=== PATIENT | female | born 1945 | race Caucasian/White ===

== ENCOUNTER 2017-04-08 12:38 | Emergency (ER) | payer MEDICARE, OTHER ==
[2017-04-08 13:01] VITALS: BP 158/84; TEMP 97; O2SAT 99
--- NOTE | 2017-04-08 13:10 | ED.PDOC ---
History of Present Illness - General Chief Complaint: Skin/Abrasion/Tear Stated Complaint: cat scratch to left forearm this am Time Seen by Provider: 04/08/17 13:04 Source: patient Exam Limitations: no limitations Additional Information: PT WITH CAT BITE AND SCRATCH TO L FOREARM. - History of Present Illness Timing/Duration: other - THIS AM Severity: mild Improving Factors: nothing Worsening Factors: nothing Associated Symptoms: denies symptoms - WANTS TETANUS AND ABX SHOT. REFUSES TO TAKE ANY PO ABX. Allergies/Adverse Reactions: Allergies NO KNOWN ALLERGY Allergy (Unverified 04/08/17 12:57) Home Medications: Ambulatory Orders Levsin 03/06/15 Pepcid 03/06/15 Review of Systems - Review of Systems Constitutional: Denies: chills, fever Musculoskeletal: States: no symptoms reported Skin: States: other - 2 SUPERFICIAL SCRATCHES TO FOREARM AND SEVERAL SMALL PUNCTURE WOUNDS. Neurological: States: no symptoms reported Past Medical History (General) - Patient Medical History Hx Seizures: No Hx Stroke: No Hx Dementia: No Hx Asthma: No Hx of COPD: No Hx Cardiac Disorders: No Hx Congestive Heart Failure: No Hx Pacemaker: No Hx Hypertension: No Hx Diabetes: No Hx Gastroesophageal Reflux: No Hx Renal Disease: No Hx Cancer: No Hx of HIV: No Hx Hepatitis C: No Hx MRSA: No Hx Other - free text: IBS - Vaccination History Hx Tetanus, Diphtheria Vaccination: No - DOESNT REMEMEBER Hx Influenza Vaccination: No Hx Pneumococcal Vaccination: No Immunizations Up to Date: No - Social History Hx Tobacco Use: No Hx Chewing Tobacco Use: No Hx Alcohol Use: No Hx Substance Use: No Hx Substance Use Treatment: No Hx Depression: No Feels Threatened In Home Enviroment: No Feels Threatened In a Relationship: No Hx Physical Abuse: No Hx Emotional Abuse: No Hx Suspected Abuse: No - Female History Patient is a Female of Child Bearing Age (10 -59 yrs old): No Patient : No Family Medical History - Family History Mother Family History: Unknown Living Status: Unknown Physical Exam - Physical Exam General Appearance: Comfortable, No apparent distress Eye Exam: bilateral normal Ears, Nose, Throat: hearing grossly normal, normal ENT inspection Neck: non-tender, full range of motion Peripheral Pulses: radial,left: 2+ Back Exam: normal inspection Extremity: normal range of motion, non-tender, other - 2 SMALL SUPERFICIAL SCRATCHES TO FOREARM, SEVERAL SMALL PUNCTURE WOUNDS TO FOREARM. NVI Neurologic: no motor/sensory deficits, oriented x 3 Skin Exam: warm/dry, other - SEE M/S EXAM Progress - Progress Progress: 04/08/17 13:[address] CROWLEY AND PT AT LENGTH. BOTH OF US AGREE THAT WITHOUT PO COVERAGE THIS WILL BE DIFFICULT. PT UNDERSTANDS AND STILL REFUSES PO ABX. HE WILL SEE IN THE OFFICE TOMORROW FOR RECHECK. Departure - Departure Clinical Impression: Cat bite of forearm Qualifiers: Encounter type: initial encounter Laterality: left Qualified Code(s): S51.852A - Open bite of left forearm, initial encounter; W55.01XA - Bitten by cat, initial encounter Time of Disposition: 13:30 Disposition: Discharge to Home or Self Care Condition: Good Departure Forms: ED Discharge - Pt. Copy, Patient Portal Self Enrollment Instructions: DI for Cat Bite Referrals: Gregorio Crowley MD [Primary Care Provider] - 1-2 Weeks Home Medications: Ambulatory Orders Levsin 03/06/15 Pepcid 03/06/15
[2017-04-08] MEDS ORDERED: AMPICILLIN & SULBACTAM SODIUM 3 GM VIAL IM ONE (13:29)
[2017-04-08] MEDS ORDERED: LIDOCAINE 1% 10 ML VIAL INJ ONE (13:45)
[2017-04-08] MEDS ORDERED: TETANUS-DIPHTHERIA TOXOIDS (TD 1 EA SYG IM ONE (13:59)
[2017-04-08] MEDS ORDERED: TETANUS,DIPHTHERIA,PERTUSSIS 1 EA SYG IM ONE (14:10)
== END 2017-04-08 14:40 | disposition home or self-care (01) ==
LOC: ER 12:38
DX: S51.852A Open bite of left forearm, initial encounter (principal); S50.812A Abrasion of left forearm, initial encounter; Z23 Encounter for immunization; W55.01XA Bitten by cat, initial encounter; Y92.9 Unspecified place or not applicable
CPT/HCPCS: 90715; J0295

== ENCOUNTER → 2018-01-16 | Outpatient (CLI) | payer MEDICARE, OTHER ==
--- NOTE | 2018-01-17 17:15 | MAM ---
EXAM DESCRIPTION: 3D Screening BILATERAL : Digital Mammography. CLINICAL HISTORY: 72 years Female SCREENING . No complaints. Mother with breast cancer. Postmenopausal. Uses vaginal HRT cream.. COMPARISON: 2-D digital screening bilateral study 11/16/2015. No prior reports available. TECHNIQUE: Bilateral CC and MLO projection full-field images, 3-D tomosynthesis digital mammographic technique. Also bilateral synthesized CC/ MLO full-field images. CAD not utilized. FINDINGS: The breast parenchymal density pattern is: Heterogeneously dense breast tissue, which may obscure small masses. No skin thickening or nipple retraction bilateral solitary microcalcifications. More numerous left breast. Dense fibroglandular tissues anterior third of both breasts. No focal, stellate mass or density, focal asymmetry , and no suspicious microcalcifications bilaterally. Stable mammograms compared to prior study, taking into account differences in mammographic technique IMPRESSION: BI-RADS CATEGORY: 2 - BENIGN FINDINGS. FOLLOW UP: Routine digital bilateral screening, one year interval from January 2018. Written communication explaining the IMPRESSION and follow-up, will be mailed to the patient and referring health care provider. According to the [employer], yearly mammograms are recommended starting at age 40 and continuing as long as a woman is in good health. Any breast change noted on a breast self-exam should be reported promptly to the patient's healthcare provider. Breast MRI is recommended for women with an approximately 20-25% or greater lifetime risk of breast cancer, including women with a strong family history of breast or ovarian cancer and women who have been treated for Hodgkin's disease. A negative mammographic report should not delay tissue diagnosis in patients with significant clinical history or physical findings. Extremely dense breast tissue limits the sensitivity of digital mammography. Electronically signed by: Darron Baer MD 01/17/2018 5:14 PM CDT
== END ==
LOC: MAMMO 13:44
PROVIDERS: ATTEND Obstetrics & Gynecology
DX: Z12.31 Encounter for screening mammogram for malignant neoplasm of breast (principal)

== ENCOUNTER 2019-07-12 18:23 | Emergency (ER) | payer MEDICARE, OTHER ==
[2019-07-12] MEDS ORDERED: SODIUM CHLORIDE 0.9% 1000ML 1,000 ML IVS ONE (18:42)
[2019-07-12] MEDS ORDERED: SODIUM CHLORIDE 0.9% (FLUSH) 10 ML SYG IV PRN (18:42)
[2019-07-12] MEDS ORDERED: levoFLOXacin 500MG IV 500 MG in PREMIX BAG 1 BAG IVPB ONE (18:42)
[2019-07-12] MEDS ORDERED: cefTRIAXone SODIUM 1 GM in SODIUM CHL 0.9% 50ML MIN-BAG+ 50 ML IVPB ONE (18:44)
[2019-07-12] MEDS ORDERED: SODIUM CHL 0.9% 50ML MIN-BAG+ 50 ML IVPB ONE (19:05)
[2019-07-12] MEDS ORDERED: cefTRIAXone SODIUM 1 GM VIAL ONE (19:05)
[2019-07-12] MEDS ORDERED: levoFLOXacin 500MG IV 100 ML IVPB ONE (19:06)
[2019-07-12] MEDS: ACETAMINOPHEN 500 MG TAB PO ONE ×2 (19:09→19:15)
--- NOTE | 2019-07-12 19:46 | RAD ---
EXAM: AP CHEST RADIOGRAPH CLINICAL INDICATION: Shortness of breath. COMPARISON: No comparisons are available. FINDINGS: Cardiac size and pulmonary vasculature are normal. Subtle irregular nodular density in the lateral right lower measures 11 mm in diameter. Left basilar scar versus atelectasis. Lungs are otherwise clear. No pleural effusions. No pneumothorax, pneumomediastinum or free peritoneal gas. No hilar or mediastinal lymphadenopathy. No mediastinal widening. Bones appear osteopenic. Bones are intact on this single view. IMPRESSION: 1. 11 mm subtle nodular density in the mid right lung. If no remote comparison chest radiographs are available, chest CT should be performed for further evaluation. 2. Left basilar scar versus atelectasis. 3. Suspect osteopenia. Otherwise, normal for age chest radiograph. Electronically signed by: Kalen Montes De Oca MD 07/12/2019 7:45 PM [employer]
--- NOTE | 2019-07-12 19:49 | RAD ---
EXAM: 2 VIEWS left FEMUR RADIOGRAPHS CLINICAL INDICATION: Pain. COMPARISON: No remote comparison available. FINDINGS: Remotely placed left hip arthroplasty wall components appear in appropriate position without evidence of fracture, loosening or infection. Partially visualized left pelvis is intact. No left sacroiliac joint and left pubic symphysis are intact. Multiple lucent benign-appearing phleboliths in the lower pelvis bilaterally. IMPRESSION: Normal for age post remote left ION placement radiographic series. Electronically signed by: Kalen Montes De Oca MD 07/12/2019 7:47 PM [facility]
--- NOTE | 2019-07-12 19:50 | RAD ---
EXAM: 2 VIEWS LEFT HIP RADIOGRAPHS CLINICAL INDICATION: Pain post trauma. COMPARISON: No remote comparisons are currently available. FINDINGS: Remotely placed left total hip arthroplasty components are in appropriate position without evidence of loosening, infection or fracture. The partially visualized left pelvis is intact. Left sacroiliac joint and pubic symphysis are intact. IMPRESSION: 4 age remotely placed left total hip arthroplasty. . Electronically signed by: Kalen Montes De Oca MD 07/12/2019 7:49 PM [employer]
--- NOTE | 2019-07-12 19:55 | RAD ---
3 VIEWS LEFT WRIST RADIOGRAPHIC SERIES. INDICATIONS: Pain and swelling. COMPARISONS: No comparisons are available. FINDINGS: Severe osteoarthritis in the first left carpometacarpal joint without subluxation. No fractures or dislocations. 3 mm negative ulnar variance. No carpal bone osteonecrosis. No radiopaque soft tissue foreign bodies or soft tissue gas. IMPRESSION: 1. Severe osteoarthritis at the first left carpometacarpal joint. 2. No fractures or dislocations. 3. 3 mm negative ulnar variance. No evidence of carpal bone fracture or osteonecrosis. Electronically signed by: Kalen Montes De Oca MD 07/12/2019 7:53 PM [facility]
--- NOTE | 2019-07-12 20:01 | ED.PDOC ---
History of Present Illness - General Chief Complaint: Lower Extremity Injury Stated Complaint: left hip pain,cat bite to left hand Time Seen by Provider: 07/12/19 18:28 - History of Present Illness Initial Comments: c/o fall 2 days back and hit her L hip , initially had pain but now subsided but wants to get evaluated as she had L hip replacement Pt again fell down to day and hurt her L wrist , now having pain and swelling al bria with fever , no nausea or vomiting Severity: moderate Improving Factors: nothing Worsening Factors: nothing Associated Symptoms: denies symptoms Allergies/Adverse Reactions: Allergies Aspirin Allergy (Verified 07/12/19 18:46) All pain medications except Tylenol Allergy (Uncoded 07/12/19 18:46) Home Medications: Ambulatory Orders Levsin 03/06/15 Pepcid 03/06/15 levoFLOXacin [Levaquin] 500 mg PO DAILY #10 tab 07/12/19 Review of Systems - Review of Systems Constitutional: States: see HPI, fever EENTM: States: no symptoms reported Respiratory: States: no symptoms reported Cardiology: States: no symptoms reported Gastrointestinal/Abdominal: States: no symptoms reported Genitourinary: States: no symptoms reported Musculoskeletal: States: see HPI Skin: States: see HPI Neurological: States: no symptoms reported Past Medical History (General) - Patient Medical History Hx Seizures: No Hx Stroke: No Hx Dementia: No Hx Asthma: No Hx of COPD: No Hx Cardiac Disorders: No Hx Congestive Heart Failure: No Hx Pacemaker: No Hx Hypertension: No Hx Diabetes: No Hx Gastroesophageal Reflux: Yes Hx Renal Disease: No Hx Cancer: No Hx of HIV: No Hx Hepatitis C: No Hx MRSA: No - Vaccination History Hx Tetanus, Diphtheria Vaccination: Yes Hx Influenza Vaccination: Yes Hx Pneumococcal Vaccination: No - Social History Hx Tobacco Use: No Hx Chewing Tobacco Use: No Hx Alcohol Use: No Hx Substance Use: No Hx Substance Use Treatment: No Hx Depression: No Hx Physical Abuse: No Hx Emotional Abuse: No Hx Suspected Abuse: No - Female History Patient : No Family Medical History - Family History Mother Family History: Unknown Living Status: Unknown Physical Exam - Physical Exam General Appearance: Alert, Comfortable Eye Exam: bilateral normal Ears, Nose, Throat: hearing grossly normal, normal ENT inspection, normal pharynx Neck: non-tender, full range of motion, supple Respiratory: chest non-tender, lungs clear, normal breath sounds, no respiratory distress, no accessory muscle use Cardiovascular/Chest: regular rate, rhythm, no edema, no gallop Back Exam: normal inspection Extremity: normal range of motion, other - tenderness and swelling over the L wrist /hand Neurologic: bird raiser II-XII nml as tested, no motor/sensory deficits, alert, normal mood/affect, oriented x 3 Skin Exam: normal color Lymphatic: no adenopathy Progress - Results/Orders Results/Orders: 07/12/19 18:42 Sodium Chloride 0.9% (Flush) [Saline Flush Syringe] 10 ml IV PRN PRN 07/12/19 18:43 Telemetry .ONCE Pulse Ox Stat URINALYSIS Stat 07/12/19 18:44 Pulse Oximetry Assessment DAILY 07/12/19 19:04 BLOOD CULTURE Stat 07/12/19 20:45 LACTIC ACID Q2H 07/12/19 22:45 LACTIC ACID Q2H 07/13/19 00:45 LACTIC ACID Q2H 07/13/19 02:45 LACTIC ACID Q2H 07/13/19 04:45 LACTIC ACID Q2H 07/13/19 06:45 LACTIC ACID Q2H 07/13/19 08:45 LACTIC ACID Q2H 07/13/19 10:45 LACTIC ACID Q2H 07/13/19 12:45 LACTIC ACID Q2H 07/13/19 14:45 LACTIC ACID Q2H 07/13/19 16:45 LACTIC ACID Q2H Laboratory Results WBC 5.8 K/mm3 (4.8-10.8) 07/12/19 19:04 RBC 3.75 M/mm3 (4.20-5.40) L 07/12/19 19:04 Hgb 10.7 gm/dL (12.0-16.0) L 07/12/19 19:04 Hct 31.6 % (36.0-47.0) L 07/12/19 19:04 MCV 84.3 fl (81.0-99.0) 07/12/19 19:04 MCH 28.5 pg (27.0-31.0) 07/12/19 19:04 MCHC 33.8 g/dL (33.0-37.0) 07/12/19 19:04 RDW 12.5 % (11.5-14.5) 07/12/19 19:04 Plt Count 223 K/mm3 (130-400) 07/12/19 19:04 MPV 7.1 fl (7.40-10.4) L 07/12/19 19:04 Absolute Neuts (auto) 4.40 K/uL (1.8-6.8) 07/12/19 19:04 Absolute Lymphs (auto) 0.70 K/uL (1.0-3.4) L 07/12/19 19:04 Absolute Monos (auto) 0.50 K/uL (0.2-0.8) 07/12/19 19:04 Absolute Eos (auto) 0.00 K/uL (0.0-0.4) 07/12/19 19:04 Absolute Basos (auto) 0.00 K/uL (0.0-0.1) 07/12/19 19:04 Neutrophils % 77.3 % (42.0-78.0) 07/12/19 19:04 Lymphocytes % 13.0 % (20.0-50.0) L 07/12/19 19:04 Monocytes % 9.2 % (2.0-9.0) H 07/12/19 19:04 Eosinophils % 0.0 % (1.0-5.0) L 07/12/19 19:04 Basophils % 0.5 % (0.0-2.0) 07/12/19 19:04 Sodium 133 mmol/L (135-145) L 07/12/19 19:04 Potassium 3.8 mmol/L (3.6-5.0) 07/12/19 19:04 Chloride 105 mmol/L (101-111) 07/12/19 19:04 Carbon Dioxide 18 mmol/L (21-31) L 07/12/19 19:04 Anion Gap 13.8 (12-18) 07/12/19 19:04 BUN 16 mg/dL (7-18) 07/12/19 19:04 Creatinine 1.10 mg/dL (0.6-1.3) 07/12/19 19:04 BUN/Creatinine Ratio 14.5 (10-20) 07/12/19 19:04 Random Glucose 136 mg/dL (70-105) H 07/12/19 19:04 Serum Osmolality 269.6 mOsm/L (275-295) L 07/12/19 19:04 Lactic Acid 1.2 mmol/L (0.5-2.2) 07/12/19 19:04 Calcium 9.1 mg/dL (8.4-10.2) 07/12/19 19:04 Total Bilirubin 0.5 mg/dL (0.2-1.0) 07/12/19 19:04 AST 18 IU/L (10-42) 07/12/19 19:04 ALT 13 IU/L (10-60) 07/12/19 19:04 Alkaline Phosphatase 74 IU/L (42-121) 07/12/19 19:04 Serum Total Protein 6.5 gm/dL (6.4-8.2) 07/12/19 19:04 Albumin 3.7 g/dl (3.2-5.5) 07/12/19 19:04 Globulin 2.8 gm/dL (2.3-3.5) 07/12/19 19:04 Albumin/Globulin Ratio 1.3 (1.1-1.9) 07/12/19 19:04 07/12/19 18:42 Sodium Chloride 0.9% (Flush) [Saline Flush Syringe] 10 ml IV PRN PRN 07/12/19 18:43 Telemetry .ONCE Pulse Ox Stat URINALYSIS Stat 07/12/19 18:44 Pulse Oximetry Assessment DAILY 07/12/19 19:04 BLOOD CULTURE Stat 07/12/19 20:45 LACTIC ACID Q2H 07/12/19 22:45 LACTIC ACID Q2H 07/13/19 00:45 LACTIC ACID Q2H 07/13/19 02:45 LACTIC ACID Q2H 07/13/19 04:45 LACTIC ACID Q2H 07/13/19 06:45 LACTIC ACID Q2H 07/13/19 08:45 LACTIC ACID Q2H 07/13/19 10:45 LACTIC ACID Q2H 07/13/19 12:45 LACTIC ACID Q2H 07/13/19 14:45 LACTIC ACID Q2H 07/13/19 16:45 LACTIC ACID Q2H Laboratory Results WBC 5.8 K/mm3 (4.8-10.8) 07/12/19 19:04 RBC 3.75 M/mm3 (4.20-5.40) L 07/12/19 19:04 Hgb 10.7 gm/dL (12.0-16.0) L 07/12/19 19:04 Hct 31.6 % (36.0-47.0) L 07/12/19 19:04 MCV 84.3 fl (81.0-99.0) 07/12/19 19:04 MCH 28.5 pg (27.0-31.0) 07/12/19 19:04 MCHC 33.8 g/dL (33.0-37.0) 07/12/19 19:04 RDW 12.5 % (11.5-14.5) 07/12/19 19:04 Plt Count 223 K/mm3 (130-400) 07/12/19 19:04 MPV 7.1 fl (7.40-10.4) L 07/12/19 19:04 Absolute Neuts (auto) 4.40 K/uL (1.8-6.8) 07/12/19 19:04 Absolute Lymphs (auto) 0.70 K/uL (1.0-3.4) L 07/12/19 19:04 Absolute Monos (auto) 0.50 K/uL (0.2-0.8) 07/12/19 19:04 Absolute Eos (auto) 0.00 K/uL (0.0-0.4) 07/12/19 19:04 Absolute Basos (auto) 0.00 K/uL (0.0-0.1) 07/12/19 19:04 Neutrophils % 77.3 % (42.0-78.0) 07/12/19 19:04 Lymphocytes % 13.0 % (20.0-50.0) L 07/12/19 19:04 Monocytes % 9.2 % (2.0-9.0) H 07/12/19 19:04 Eosinophils % 0.0 % (1.0-5.0) L 07/12/19 19:04 Basophils % 0.5 % (0.0-2.0) 07/12/19 19:04 Sodium 133 mmol/L (135-145) L 07/12/19 19:04 Potassium 3.8 mmol/L (3.6-5.0) 07/12/19 19:04 Chloride 105 mmol/L (101-111) 07/12/19 19:04 Carbon Dioxide 18 mmol/L (21-31) L 07/12/19 19:04 Anion Gap 13.8 (12-18) 07/12/19 19:04 BUN 16 mg/dL (7-18) 07/12/19 19:04 Creatinine 1.10 mg/dL (0.6-1.3) 07/12/19 19:04 BUN/Creatinine Ratio 14.5 (10-20) 07/12/19 19:04 Random Glucose 136 mg/dL (70-105) H 07/12/19 19:04 Serum Osmolality 269.6 mOsm/L (275-295) L 07/12/19 19:04 Lactic Acid 1.2 mmol/L (0.5-2.2) 07/12/19 19:04 Calcium 9.1 mg/dL (8.4-10.2) 07/12/19 19:04 Total Bilirubin 0.5 mg/dL (0.2-1.0) 07/12/19 19:04 AST 18 IU/L (10-42) 07/12/19 19:04 ALT 13 IU/L (10-60) 07/12/19 19:04 Alkaline Phosphatase 74 IU/L (42-121) 07/12/19 19:04 Serum Total Protein 6.5 gm/dL (6.4-8.2) 07/12/19 19:04 Albumin 3.7 g/dl (3.2-5.5) 07/12/19 19:04 Globulin 2.8 gm/dL (2.3-3.5) 07/12/19 19:04 Albumin/Globulin Ratio 1.3 (1.1-1.9) 07/12/19 19:04 Departure - Departure Clinical Impression: Hand injury, Hip pain, left, Fall, Cellulitis and abscess of hand, Fever Time of Disposition: 20:05 Disposition: Discharge to Home or Self Care Condition: Good Departure Forms: ED Discharge - Pt. Copy, Patient Portal Self Enrollment Diet: resume usual diet Activity: increase activity as tolerated, walking as tolerated Referrals: Jevon Clay MD [Primary Care Provider] - 1-2 Weeks Prescriptions: levoFLOXacin [Levaquin] 500 mg PO DAILY #10 tab Home Medications: Ambulatory Orders Levsin 03/06/15 Pepcid 03/06/15 levoFLOXacin [Levaquin] 500 mg PO DAILY #10 tab 07/12/19
[2019-07-12 20:51] VITALS: BP 111/83; TEMP 100.9; O2SAT 99
== END 2019-07-12 20:52 | disposition home or self-care (01) ==
LOC: ER 18:23
DX: S61.452A Open bite of left hand, initial encounter (principal); L02.512 Cutaneous abscess of left hand; M25.552 Pain in left hip; K21.9 Gastro-esophageal reflux disease without esophagitis; W55.01XA Bitten by cat, initial encounter; Z96.642 Presence of left artificial hip joint; Y92.9 Unspecified place or not applicable; Z88.6 Allergy status to analgesic agent
CPT/HCPCS: 36415; 71045; 73110; 73502; 73551; 80053; 83605; 85025; 87040; 87502; 94760; J0696; J1956; J7030; J7050

== ENCOUNTER 2019-07-13 19:06 | Emergency (ER) | payer MEDICARE, OTHER ==
--- NOTE | 2019-07-13 20:29 | ED.PDOC ---
History of Present Illness - General Chief Complaint: Bite: Animal/Insect/Human Time Seen by Provider: 07/13/19 20:29 - History of Present Illness Initial Comments: 74 yo F who presents for continued L hand swelling. Pt sustained a cat bite two days ago and a day ago accidentally slammed her hand in a fall. Pt was evaluated here, placed on antibx with first dose in ED, after unremarkable workup. Pt has only had one dose of antibx, she is concerned because she has not seen improvement. Denies worsening of sx. Denies f/c, weakness, numbness, discharge, streaking of erythema. Complaint with antibx Levaquin, could not tolerate Augmentin. Allergies/Adverse Reactions: Allergies Aspirin Allergy (Verified 07/13/19 20:43) All pain medications except Tylenol Allergy (Uncoded 07/12/19 18:46) Home Medications: Ambulatory Orders Levsin 03/06/15 Pepcid 03/06/15 Amoxicillin & Pot Clavulanate [Augmentin Tab] 875 mg PO BID #20 tab 07/12/19 levoFLOXacin [Levaquin] 500 mg PO DAILY #10 tab 07/12/19 Review of Systems - Review of Systems Constitutional: Denies: chills, fever Musculoskeletal: States: other - L hand pain and swelling Skin: States: other - wound Neurological: Denies: numbness, weakness Past Medical History (General) - Patient Medical History Hx Seizures: No Hx Stroke: No Hx Dementia: No Hx Asthma: No Hx of COPD: No Hx Cardiac Disorders: No Hx Congestive Heart Failure: No Hx Pacemaker: No Hx Hypertension: No Hx Diabetes: No Hx Gastroesophageal Reflux: Yes Hx Renal Disease: No Hx Cancer: No Hx of HIV: No Hx Hepatitis C: No Hx MRSA: No - Vaccination History Hx Tetanus, Diphtheria Vaccination: Yes Hx Influenza Vaccination: Yes Hx Pneumococcal Vaccination: No - Social History Hx Tobacco Use: No Hx Chewing Tobacco Use: No Hx Alcohol Use: No Hx Substance Use: No Hx Substance Use Treatment: No Hx Depression: No Hx Physical Abuse: No Hx Emotional Abuse: No Hx Suspected Abuse: No - Female History Patient : No Family Medical History - Family History Mother Family History: Unknown Living Status: Unknown Physical Exam - Physical Exam General Appearance: Alert, No apparent distress Respiratory: no respiratory distress, no accessory muscle use Cardiovascular/Chest: normal peripheral pulses, regular rate, rhythm Peripheral Pulses: radial,left: 2+ Extremity: normal range of motion, other - Abrasion noted to dorsal aspect of L hand from fall, small pinpoint abrasion also noted to dorsal aspect of L hand from cat bite. Mild swelling and very light erythema to distal dorsal aspect. No discharge. FROM. 2+ pulses, cap refill <2sec, NVID. Progress - Progress Progress: Vital Signs - 24 hr 07/13/19 07/13/19 20:15 21:00 Temperature 100.2 F H 100.2 F H Pulse Rate [ 114 H 96 H monitor] Respiratory 16 16 Rate Blood Pressure 126/71 122/71 [Right Arm] O2 Sat by Pulse 97 97 Oximetry 07/13/19 20:40 I have explained and reviewed all results with the pt. Informed to continue antibx as prescribed. I explained that emergent conditions may arise and to return to the ER for new, worsening, or any persistent conditions. I've explained the importance of f/u for recheck. All questions and concerns addressed at this time. Pt understands and agrees with plan. Pt well appearing, NAD, is stable for discharge. Tessy Poon MD Emergency Medicine Physician Billing Number [id number] - Results/Orders Results/Orders: Left wrist: 3 VIEWS LEFT WRIST RADIOGRAPHIC SERIES. INDICATIONS: Pain and swelling. COMPARISONS: No comparisons are available. FINDINGS: Severe osteoarthritis in the first left carpometacarpal joint without subluxation. No fractures or dislocations. 3 mm negative ulnar variance. No carpal bone osteonecrosis. No radiopaque soft tissue foreign bodies or soft tissue gas. IMPRESSION: 1. Severe osteoarthritis at the first left carpometacarpal joint. 2. No fractures or dislocations. 3. 3 mm negative ulnar variance. No evidence of carpal bone fracture or osteonecrosis. Electronically signed by: Kalen Montes De Oca MD 07/12/2019 7:53 PM [employer] Departure - Departure Clinical Impression: Cat bite Qualifiers: Encounter type: subsequent encounter Qualified Code(s): W55.01XD - Bitten by cat, subsequent encounter Contusion of left hand Qualifiers: Encounter type: subsequent encounter Qualified Code(s): S60.222D - Contusion of left hand, subsequent encounter Abrasion of left hand Qualifiers: Encounter type: subsequent encounter Qualified Code(s): S60.512D - Abrasion of left hand, subsequent encounter Time of Disposition: 20:40 Disposition: Discharge to Home or Self Care Health Concerns: Condition: stable Departure Forms: ED Discharge - Pt. Copy, Patient Portal Self Enrollment Instructions: DI for Animal Bites Referrals: Jevon Clay MD [Primary Care Provider] - 1-2 Days Home Medications: Ambulatory Orders Levsin 03/06/15 Pepcid 03/06/15 Amoxicillin & Pot Clavulanate [Augmentin Tab] 875 mg PO BID #20 tab 07/12/19 levoFLOXacin [Levaquin] 500 mg PO DAILY #10 tab 07/12/19 Comments: Follow up: [facility] As needed, if symptoms worsen Your Primary Care Physician Make appointment, two days, for follow up
[2019-07-13 20:43] VITALS: TEMP 100.2; O2SAT 97
[2019-07-13 21:00] VITALS: BP 122/71
== END 2019-07-13 21:04 | disposition home or self-care (01) ==
LOC: ER 19:06
DX: S60.572D Other superficial bite of hand of left hand, subsequent encounter (principal); K21.9 Gastro-esophageal reflux disease without esophagitis; W55.01XD Bitten by cat, subsequent encounter; Z79.899 Other long term (current) drug therapy; Z88.6 Allergy status to analgesic agent; Y92.9 Unspecified place or not applicable

== ENCOUNTER → 2019-07-27 | Outpatient (CLI) | payer MEDICARE, OTHER | END | disposition home or self-care (01) | LOC: RAD 10:14 | PROVIDERS: ATTEND Orthopaedic Surgery | DX: M25.521 Pain in right elbow (principal) ==

== ENCOUNTER → 2019-08-17 | Outpatient (CLI) | payer MEDICARE, OTHER | LOC: GMA MATASK 14:36 | PROVIDERS: ATTEND Family Medicine | DX: R94.6 Abnormal results of thyroid function studies (principal); R39.15 Urgency of urination ==

== ENCOUNTER → 2019-08-21 | Outpatient (CLI) | payer MEDICARE, OTHER ==
--- NOTE | 2019-08-21 13:12 | CT ---
EXAM DESCRIPTION: Chest w/wo Contrast CLINICAL HISTORY: 74 years Female, SOLITARY PULMONARY NODULE TECHNIQUE: This exam was performed according to our departmental dose-optimization program, which includes automated exposure control, adjustment of the mA and/or kV according to patient size and/or use of iterative reconstruction technique. COMPARISON: 07/12/2019 FINDINGS: The thyroid gland is unremarkable. No axillary adenopathy. Normal caliber thoracic aorta. No pericardial effusion. No evidence of acute process in the visualized upper abdomen. Left hepatic lobe cysts. Moderate hiatal hernia. No mediastinal adenopathy. No pneumothorax. No pleural effusion. Biapical scarring. No focal consolidation or suspicious pulmonary nodule identified. The nodular area in question from the examination 07/12/2019 may have reflected superimposition of overlying structures. No acute or suspicious osseous abnormality. Scattered degenerative changes present. IMPRESSION: No evidence of acute process in the chest. Specifically no pulmonary nodule identified. Electronically signed by: Jesus Manuel Ren MD 08/21/2019 1:11 PM [employer]
== END ==
LOC: CT 10:00
PROVIDERS: ATTEND Family Medicine
DX: R91.1 Solitary pulmonary nodule (principal)

== ENCOUNTER 2020-01-29 20:44 | Emergency (ER) | payer MEDICARE, OTHER ==
[2020-01-29] MEDS ORDERED: fentaNYL CITRATE INJ 50 MCG/ML 2 ML AMP IV ONE (20:49)
--- NOTE | 2020-01-29 21:14 | ED.PDOC ---
History of Present Illness - General Chief Complaint: Upper Extremity Injury Stated Complaint: fall with left shoulder pain Time Seen by Provider: 01/29/20 20:49 Source: patient, RN notes reviewed, Vital Signs reviewed, EMS notes reviewed, family, EMS Exam Limitations: no limitations - History of Present Illness Initial Comments: This is a 74-year-old female presenting to the emergency department after a mechanical fall where she tripped over her cane and landed on her left shoulder. Injury occurred just prior to arrival. Denies any head trauma or loss of consciousness. No blood thinners. Patient reports significant pain with minimal range of motion of the left shoulder. No numbness/tingling. Denies any recent illness/cough/fever/travel/COVID-19 contacts. She denies any preceding symptoms like chest pain, shortness of breath or dizziness. Allergies/Adverse Reactions: Allergies Aspirin Allergy (Verified 07/13/19 20:43) Morphine Allergy (Verified 01/29/20 21:03) All pain medications except Tylenol Allergy (Uncoded 07/12/19 18:46) Home Medications: Ambulatory Orders Levsin 03/06/15 Pepcid 03/06/15 Hydrocodone-Acetaminophen [[place] 7.5-325 mg] 1 - 2 tab PO Q6H PRN #20 tab 01/29/20 Imipramine HCl 10 PO TID 01/29/20 Review of Systems - Review of Systems Constitutional: Denies: chills, fever Respiratory: Denies: orthopnea, stridor Cardiology: Denies: edema, syncope Gastrointestinal/Abdominal: Denies: abdominal pain, diarrhea, nausea, vomiting Musculoskeletal: States: joint pain. Denies: back pain, muscle pain, neck pain Skin: Denies: dryness Neurological: Denies: headache, numbness, paresthesia, tingling, weakness Endocrine: States: no symptoms reported Hematologic/Lymphatic: States: no symptoms reported Past Medical History (General) - Patient Medical History Hx Seizures: No Hx Stroke: No Hx Dementia: No Hx Asthma: No Hx of COPD: No Hx Cardiac Disorders: No Hx Congestive Heart Failure: No Hx Pacemaker: No Hx Hypertension: No Hx Thyroid Disease: Yes - Hyper Hx Diabetes: No Hx Gastroesophageal Reflux: No Hx Renal Disease: No Hx Cancer: No Hx of HIV: No Hx Hepatitis C: No Hx MRSA: No Surgical History: tonsillectomy, other - Vaccination History Hx Tetanus, Diphtheria Vaccination: Yes Hx Influenza Vaccination: Yes Hx Pneumococcal Vaccination: Yes - Social History Hx Tobacco Use: No Hx Chewing Tobacco Use: No Hx Alcohol Use: No Hx Substance Use: No Hx Substance Use Treatment: No Hx Depression: No Feels Threatened In Home Enviroment: No Feels Threatened In a Relationship: No Hx Physical Abuse: No Hx Emotional Abuse: No Hx Suspected Abuse: No - Female History Patient is a Female of Child Bearing Age (10 -59 yrs old): No Patient : No - Triage Comment ED Triage Comment: The patient was alert and oriented times 4 and complained of left shoulder pain. She denied head, neck, back and hip pain and had no other obvious signs of injury noted. Family Medical History - Family History Mother Family History: Unknown Living Status: Unknown Physical Exam - Physical Exam General Appearance: Alert, Comfortable, No apparent distress Eyes, Ears, Nose, Throat Exam: PERRL/EOMI, normal ENT inspection, TMs normal, pharynx normal Neck: non-tender, full range of motion, supple, normal inspection Cardiovascular/Respiratory: regular rate, rhythm, no M/R/G, normal peripheral pulses, no JVD, normal breath sounds, no respiratory distress Abdominal Exam: non-tender, no organomegaly Back Exam: normal inspection, no CVA tenderness, no vertebral tenderness Shoulder Exam: bone tenderness - Proximal left humerus and lateral left shoulder, limited ROM Elbow/Forearm Exam: normal inspection, normal ROM, bone tenderness Wrist Exam: no evidence of injury Hand Exam: normal inspection, non-tender, no evidence of injury, normal ROM Neuro/Tendon: normal sensation, normal motor functions, normal tendon functions, no evidence tendon injury Mental Status: alert, oriented x 3 Skin Exam: normal color, warm/dry Progress - Progress Progress: 01/29/20 21:33 Recheck. Discussed x-ray findings, plan for sling and need for follow-up with orthopedics next week. Long discussion regarding pain control. Patient states she does not do well with any opiates due to her history of IBS. She states these medications all make her constipated. I recommended daily stool softeners when taking her pain medication. Will discharge home with Columbus. 01/29/20 21:[address] Boone, left message. Notified of plan for discharge DDX: Fx, dislocation, sprain Franko Cooper DO [facility] #[id number] - Results/Orders Results/Orders: EXAM: XR Left Shoulder Complete, 2 or More Views CLINICAL HISTORY: The patient is 74 years old and is Female; fall, shoulder and elbow pain TECHNIQUE: Two or more views of the left shoulder. COMPARISON: No relevant prior studies available. FINDINGS: BONES/JOINTS: Acute fracture of the greater tuberosity is present. Humeral head is well located. No dislocation. SOFT TISSUES: Unremarkable. LUNGS: The visualized lung is clear. IMPRESSION: Greater tuberosity fracture. Electronically signed by: Sharifa Lane MD 01/29/2020 9:33 PM CDT EXAM: XR Left Elbow, 2 Views CLINICAL HISTORY: The patient is 74 years old and is Female; fall, shoulder and elbow pain TECHNIQUE: Frontal and lateral views of the left elbow. COMPARISON: No relevant prior studies available. FINDINGS: BONES/JOINTS: Degenerative change of the elbow is present with spurring of the radial head and joint space narrowing of the elbow joint. There is no joint effusion. No acute fracture. No dislocation. SOFT TISSUES: Unremarkable. IMPRESSION: No acute findings in the left elbow. Electronically signed by: Sharifa Lane MD 01/29/2020 9:33 PM I reviewed the x-rays of the shoulder and elbow personally. No elbow fracture. I disagree with the interpretation of the left shoulder x-ray, I do not feel this is a greater tuberosity fracture. Per my read it appears to be a slightly impacted surgical neck fracture. No dislocation Departure - Departure Clinical Impression: Fall Qualifiers: Encounter type: initial encounter Qualified Code(s): W19.XXXA - Unspecified fall, initial encounter Proximal humerus fracture Qualifiers: Encounter type: initial encounter Fracture type: closed Fracture morphology: other fracture Fracture alignment: nondisplaced Laterality: left Qualified Code(s): S42.295A - Other nondisplaced fracture of upper end of left humerus, initial encounter for closed fracture Disposition: Discharge to Home or Self Care Condition: Good Departure Forms: ED Discharge - Pt. Copy, Patient Portal Self Enrollment Instructions: DI for Arm Pain Diet: resume usual diet Activity: increase activity as tolerated Referrals: Jevon Clay MD [Primary Care Provider] - 1-2 Weeks Prescriptions: Hydrocodone-Acetaminophen [[place]us 7.5-325 mg] 1 - 2 tab PO Q6H PRN #20 tab PRN Reason: Moderate To Severe Pain Home Medications: Ambulatory Orders Levsin 03/06/15 Pepcid 03/06/15 Hydrocodone-Acetaminophen [[place] 7.5-325 mg] 1 - 2 tab PO Q6H PRN #20 tab 01/29/20 Imipramine HCl 10 PO TID 01/29/20 Additional Instructions: Wear sling as much as possible. Take your arm out of the sling at least 2-3 times a day and perform gentle range of motion exercises to prevent frozen shoulder. Your pain medication will make you constipated. Please take your normal stool softeners anytime you take your pain medication to prevent constipation. Return to the emergency room for worsening pain, discoloration in your hands/fingers, weakness/numbness/tingling, or any other concerns
--- NOTE | 2020-01-29 21:34 | RAD ---
EXAM: XR Left Elbow, 2 Views CLINICAL HISTORY: The patient is 74 years old and is Female; fall, shoulder and elbow pain TECHNIQUE: Frontal and lateral views of the left elbow. COMPARISON: No relevant prior studies available. FINDINGS: BONES/JOINTS: Degenerative change of the elbow is present with spurring of the radial head and joint space narrowing of the elbow joint. There is no joint effusion. No acute fracture. No dislocation. SOFT TISSUES: Unremarkable. IMPRESSION: No acute findings in the left elbow. Electronically signed by: Sharifa Lane MD 01/29/2020 9:33 PM CDT
--- NOTE | 2020-01-29 21:35 | RAD ---
EXAM: XR Left Shoulder Complete, 2 or More Views CLINICAL HISTORY: The patient is 74 years old and is Female; fall, shoulder and elbow pain TECHNIQUE: Two or more views of the left shoulder. COMPARISON: No relevant prior studies available. FINDINGS: BONES/JOINTS: Acute fracture of the greater tuberosity is present. Humeral head is well located. No dislocation. SOFT TISSUES: Unremarkable. LUNGS: The visualized lung is clear. IMPRESSION: Greater tuberosity fracture. Electronically signed by: Sharifa Lane MD 01/29/2020 9:33 PM CDT
[2020-01-29 22:03] VITALS: O2SAT 96
[2020-01-29] MEDS ORDERED: HYDROcodone 5MG/APAP 325MG 1 EA TAB PO ONE (22:06)
[2020-01-29 22:31] VITALS: BP 136/87; TEMP 97.2
== END 2020-01-29 22:28 | disposition home or self-care (01) ==
LOC: ER 20:44
DX: S42.295A Other nondisplaced fracture of upper end of left humerus, initial encounter for closed fracture (principal); M25.512 Pain in left shoulder; W01.0XXA Fall on same level from slipping, tripping and stumbling without subsequent striking against object, initial encounter; Y92.9 Unspecified place or not applicable
CPT/HCPCS: 73030; 73070; J3010

== ENCOUNTER → 2020-02-04 | Outpatient (CLI) | payer MEDICARE, OTHER ==
--- NOTE | 2020-02-04 11:35 | RAD ---
EXAM DESCRIPTION: Hand,Left 3 Views CLINICAL HISTORY: PAIN IN LEFT HAND COMPARISON: None Available. TECHNIQUE: AP, LATERAL, AND OBLIQUE FINDINGS: The visualized bones appear poorly mineralized. No acute fracture or dislocation. Severe osteoarthritis of the first carpometacarpal joint. Moderate degenerative changes identified in the distal radioulnar, radiocarpal, metacarpophalangeal and interphalangeal joints. The soft tissues appear grossly unremarkable. IMPRESSION: Severe osteoarthritis of the first carpometacarpal joint. Moderate degenerative changes identified in the distal radioulnar, radiocarpal, metacarpophalangeal and interphalangeal joints. Electronically signed by: Sara Escoto MD 02/04/2020 11:34 AM CDT
--- NOTE | 2020-02-04 11:36 | RAD ---
EXAM DESCRIPTION: Shoulder,Left 2 or More Views CLINICAL HISTORY: 74 years Female, PAIN IN LEFT SHOULDER COMPARISON: 01/29/2020. FINDINGS: The visualized bones are well-mineralized. Fracture of the greater tuberosity is again noted with no significant interval healing. Moderate acromioclavicular joint osteoarthritis. The soft tissues appear grossly unremarkable. IMPRESSION: Fracture of the greater tuberosity is again noted with no significant interval healing. Electronically signed by: Sara Escoto MD 02/04/2020 11:35 AM CDT
== END ==
LOC: RAD 11:06
PROVIDERS: ATTEND Orthopaedic Surgery
DX: S42.295D Other nondisplaced fracture of upper end of left humerus, subsequent encounter for fracture with routine healing (principal); M18.12 Unilateral primary osteoarthritis of first carpometacarpal joint, left hand; M19.042 Primary osteoarthritis, left hand; M19.032 Primary osteoarthritis, left wrist

== ENCOUNTER → 2020-02-12 | Outpatient (CLI) | payer MEDICARE, OTHER ==
--- NOTE | 2020-02-12 11:11 | RAD ---
EXAM DESCRIPTION: Shoulder x-ray,Left 2 Views CLINICAL HISTORY: CLOSED FRACTURE OF PROXIMAL LEFT HUMERUS COMPARISON: None Available. TECHNIQUE: Two x-ray views of the left shoulder. FINDINGS: Both images are taken with external rotation and there is longitudinal fracture line to the proximal humerus the head from the greater tuberosity. Slight comminution superiorly. Displacement is minimal. Additional fracture line through the surgical neck is better seen on the previous study February 04, 2020. Intact clavicle and scapula. There is no dislocation. No callus formation is seen. IMPRESSION: Proximal left humeral fracture as described. Electronically signed by: Jeremie Muse MD 02/12/2020 11:09 AM CDT
== END ==
LOC: RAD 10:07
PROVIDERS: ATTEND Orthopaedic Surgery
DX: S42.202D Unspecified fracture of upper end of left humerus, subsequent encounter for fracture with routine healing (principal)

== ENCOUNTER → 2020-02-16 | Outpatient (CLI) | payer MEDICARE, OTHER ==
--- NOTE | 2020-02-16 17:39 | RAD ---
EXAM DESCRIPTION: Shoulder,Left 2 or More Views CLINICAL HISTORY: CLOSED FRACTURE OF PROXIMAL LEFT HUMERUS COMPARISON: February 2020 TECHNIQUE: 3 views left FINDINGS: Exam reveals a fracture of the greater tuberosity a left proximal humerus. No dislocation is seen. Mild left AC joint arthritis is seen. IMPRESSION: A fracture of the greater tuberosity of the left proximal humerus is observed. No significant interval change is noted. A previously observed fracture of the surgical neck is not readily demonstrated on today's exam. Electronically signed by: Rosendo Cassidy MD 02/16/2020 5:38 PM CDT
== END ==
LOC: RAD 14:12
PROVIDERS: ATTEND Orthopaedic Surgery
DX: S42.202D Unspecified fracture of upper end of left humerus, subsequent encounter for fracture with routine healing (principal)

== ENCOUNTER → 2020-03-04 | Outpatient (CLI) | payer MEDICARE, OTHER ==
--- NOTE | 2020-03-04 12:38 | RAD ---
EXAM DESCRIPTION: Shoulder,Left 2 or More Views CLINICAL HISTORY: 74 years Female, CLOSED FRACTURE OF PROXIMAL LEFT HUMERUS COMPARISON: Left shoulder radiographs 02/16/2020 TECHNIQUE: 2 view radiograph of the left shoulder. IMPRESSION: Again demonstrated fracture of the greater tuberosity with no greater than 1-2 mm separation of the fracture fragments. Previously identified surgical neck fracture not readily apparent on today's radiograph. There is no increased sclerosis or callus formation when compared to prior studies. Intact AC joint. Mild glenohumeral arthrosis. No soft tissue defect or radiopaque foreign body. Electronically signed by: Jorge Luis Viera MD 03/04/2020 12:36 PM CDT
== END ==
LOC: RAD 10:03
PROVIDERS: ATTEND Orthopaedic Surgery
DX: S42.202D Unspecified fracture of upper end of left humerus, subsequent encounter for fracture with routine healing (principal); M19.012 Primary osteoarthritis, left shoulder

== ENCOUNTER → 2020-04-04 | Outpatient (CLI) | payer MEDICARE, OTHER ==
--- NOTE | 2020-04-04 12:50 | RAD ---
EXAM DESCRIPTION: Shoulder,Left 2 or More Views CLINICAL HISTORY: OF PROXIMAL LEFT HUMERUS COMPARISON: March 04, 2020 IMPRESSION: 2 views of the left shoulder show diffuse osteopenia the osseous structures. Minimally displaced fracture involving the greater tuberosity of the left shoulder is again seen with mild periosteal reaction and early callus formation of the inferior aspect of the fracture slightly increased from previous exam. No progressive separation of the fracture fragments No dislocation. Mild osteoarthritic changes of the left acromioclavicular joint are seen. Electronically signed by: Marlo Cazares MD 04/04/2020 12:48 PM CDT
== END ==
LOC: RAD 09:58
PROVIDERS: ATTEND Orthopaedic Surgery
DX: S42.202D Unspecified fracture of upper end of left humerus, subsequent encounter for fracture with routine healing (principal); M19.012 Primary osteoarthritis, left shoulder; M85.822 Other specified disorders of bone density and structure, left upper arm

== ENCOUNTER 2020-04-07 13:45 | Emergency (ER) | payer MEDICARE, OTHER ==
--- NOTE | 2020-04-07 14:14 | ED.PDOC ---
History of Present Illness - General Chief Complaint: Trauma Stated Complaint: Fall Time Seen by Provider: 04/07/20 14:06 - History of Present Illness Initial Comments: 75 yo F PMH IBS Thyroid Disease and Anxiety/Depression (Denies hallucinations SI HI without suicide plan) presents to ED at bedside c/o laceration to chin after mechanical fall onto concrete 1 hour prior to arrival. Pt. also has abrasions to bridge of nose right knee and pain to right wrist and right hand. Denies LOC. Denies fever cough sob recent travel or contact with covid19. Denies fever chills nausea vomiting diarrhea chest pain sob diaphoresis. No change in diet rest bowel or bladder. Denies drinking or smoking admits FH HTN denies FH DM has PMD for follow up Dr. Rendon no other c/o today. PPE worn-N95 surgical mask with attached face shield over N95 goggles gloves and face shield over that Allergies/Adverse Reactions: Allergies Aspirin Allergy (Verified 04/07/20 14:13) Morphine Allergy (Verified 04/07/20 14:13) All pain medications except Tylenol Allergy (Uncoded 04/07/20 14:13) Home Medications: Ambulatory Orders Levsin 03/06/15 Pepcid 03/06/15 Hydrocodone-Acetaminophen [[place] 7.5-325 mg] 1 - 2 tab PO Q6H PRN #20 tab 01/29/20 Imipramine HCl 10 PO TID 01/29/20 Acetaminophen [Tylenol] 650 mg PO Q6H PRN #30 tab 04/07/20 Amoxicillin & Pot Clavulanate [Augmentin Tab] 875 mg PO BID 10 Days #20 tab 04/07/20 Review of Systems - Review of Systems Constitutional: States: see HPI EENTM: States: see HPI Respiratory: States: see HPI Cardiology: States: see HPI Gastrointestinal/Abdominal: States: see HPI Genitourinary: States: see HPI Musculoskeletal: States: see HPI Skin: States: see HPI Neurological: States: see HPI Endocrine: States: see HPI Hematologic/Lymphatic: States: see HPI Past Medical History (General) - Patient Medical History Hx Seizures: No Hx Stroke: No Hx Dementia: No Hx Asthma: No Hx of COPD: No Hx Cardiac Disorders: No Hx Congestive Heart Failure: No Hx Pacemaker: No Hx Hypertension: No Hx Thyroid Disease: Yes - Hyper Hx Diabetes: No Hx Gastroesophageal Reflux: No Hx Renal Disease: No Hx Cancer: No Hx of HIV: No Hx Hepatitis C: No Hx MRSA: No Surgical History: no surgical history - Vaccination History Hx Tetanus, Diphtheria Vaccination: Yes Hx Influenza Vaccination: Yes Hx Pneumococcal Vaccination: Yes Immunizations Up to Date: Yes - Social History Hx Tobacco Use: No Hx Chewing Tobacco Use: No Hx Alcohol Use: No Hx Substance Use: No Hx Substance Use Treatment: No Hx Depression: No Hx Physical Abuse: No Hx Emotional Abuse: No Hx Suspected Abuse: No - Activities of Daily Living Hospice Agency (if applicable):: None - Female History Patient is a Female of Child Bearing Age (10 -59 yrs old): No Patient : No Family Medical History - Family History Mother Family History: Unknown Living Status: Unknown Physical Exam - Physical Exam General Appearance: No apparent distress Eye Exam: bilateral normal Ears, Nose, Throat: normal ENT inspection, other - superficial abrasion to bridge of nose Neck: non-tender Respiratory: no respiratory distress Cardiovascular/Chest: regular rate, rhythm Gastrointestinal/Abdominal: non tender, soft Rectal Exam: deferred Back Exam: normal inspection Extremity: normal range of motion, normal inspection Neurologic: no motor/sensory deficits Skin Exam: normal color Progress - Progress Progress: 04/07/20 14:31 A/P-Fall Contusions Abrasions Closed Head Injury Wrist Pain Hand Pain Knee Pain Chin Laceration-iv bolus cbc cmp ua trop ekg cxr xr pelvis c collat ct head c spine facial bones xr right knee wrist and hand tylenol tetanus reassess 04/07/20 15:45 Laboratory Tests 04/07/20 04/07/20 04/07/20 14:25 14:25 14:25 WBC 3.6 L RBC 4.27 Hgb 12.5 Hct 36.6 MCV 85.8 MCH 29.2 MCHC 34.1 RDW 14.2 Plt Count 241 MPV 6.5 L Absolute Neuts (auto) 2.20 Absolute Lymphs (auto) 1.10 Absolute Monos (auto) 0.30 Absolute Eos (auto) 0.00 Absolute Basos (auto) 0.00 Neutrophils % 60.8 Lymphocytes % 31.1 Monocytes % 7.2 Eosinophils % 0.1 L Basophils % 0.8 Sodium 133 L Potassium 4.3 Chloride 101 Carbon Dioxide 23 Anion Gap 13.3 BUN 13 Creatinine 1.14 BUN/Creatinine Ratio 11.4 Random Glucose 103 Serum Osmolality 266.7 L Calcium 9.1 Total Bilirubin 0.4 AST 21 ALT 16 Alkaline Phosphatase 120 Troponin I < 0.02 Serum Total Protein 7.1 Albumin 4.2 Globulin 2.9 Albumin/Globulin Ratio 1.4 Urine Color Urine Appearance Urine pH Ur Specific [place] Urine Protein Urine Glucose (UA) Urine Ketones Urine Blood Urine Nitrite Urine Bilirubin Urine Urobilinogen Ur Leukocyte Esterase Urine RBC Urine WBC Ur Epithelial Cells Amorphous Sediment Urine Bacteria Urine Mucus 04/07/20 15:16 WBC RBC Hgb Hct MCV MCH MCHC RDW Plt Count MPV Absolute Neuts (auto) Absolute Lymphs (auto) Absolute Monos (auto) Absolute Eos (auto) Absolute Basos (auto) Neutrophils % Lymphocytes % Monocytes % Eosinophils % Basophils % Sodium Potassium Chloride Carbon Dioxide Anion Gap BUN Creatinine BUN/Creatinine Ratio Random Glucose Serum Osmolality Calcium Total Bilirubin AST ALT Alkaline Phosphatase Troponin I Serum Total Protein Albumin Globulin Albumin/Globulin Ratio Urine Color Yellow Urine Appearance Clear Urine pH 6.0 Ur Specific [place] 1.015 Urine Protein Negative Urine Glucose (UA) Negative Urine Ketones Negative Urine Blood Negative Urine Nitrite Negative Urine Bilirubin Negative Urine Urobilinogen 0.2 Ur Leukocyte Esterase Negative Urine RBC 0 Urine WBC 0-1 Ur Epithelial Cells 1-3 Amorphous Sediment 1+ Urine Bacteria 0 Urine Mucus Moderate 2 radiographs left shoulder Indication: Shoulder pain Comparison: April 04, 2020 Impression: Previously noted fracture involving the left humeral neck and greater tuberosity is redemonstrated and appears stable in alignment. The fracture remains ununited. No new fracture or malalignment. Electronically signed by: Alan Conner MD 04/07/2020 3:18 PM Given.toT Study: Single Frontal Radiograph of the Chest. Indication:trauma Comparison: July 12, 2019 Impression: Heart size normal. Mild basilar atelectasis. No pleural effusion or pneumothorax. Osteopenia. If this is a new finding, DEXA scan recommended as well as evaluation for possible osteoporosis treatment. Electronically signed by: Alan Conner MD 04/07/2020 3:14 PM Given.toT Frontal, lateral, and oblique views of the right hand. Indication: trauma Comparison: None Impression: No acute fracture. If there is persistent anatomic snuffbox tenderness, repeat wrist imaging to include a scaphoid view is recommended in one week to evaluate for occult scaphoid fracture. Severe erosive osteoarthritis second DIP joint with less pronounced osteoarthritic changes throughout the hand and wrist. 8 mm negative ulnar variance. Electronically signed by: Alan Conner MD 04/07/2020 3:15 PM CDT Study: CT of the Head. CT of the Face. Indication: trauma Technique: Axial CT images of the head were acquired without intravenous contrast. In addition, axial CT images were acquired of the face without intravenous contrast. Coronal and sagittal reformats performed. This exam was performed according to our departmental dose-optimization program, which includes automated exposure control, adjustment of the mA and/or kV according to patient size and/or use of iterative reconstruction technique. Comparison: None. Findings: No CT evidence of acute ischemia, acute hemorrhage, mass, mass effect, midline shift, or extra-axial fluid collection. Ventricles are normal in configuration without hydrocephalus. Patchy hypoattenuation of the periventricular and subcortical white matter noted. This is nonspecific but most consistent with chronic microvascular ischemic change. Global parenchymal volume loss and intracranial atherosclerosis noted as well. Paranasal sinuses are adequately aerated. Mastoid air cells are adequately aerated. Osseous structures and soft tissues are unremarkable. No facial fracture identified. Impression: No CT evidence of acute intracranial abnormality. No acute facial fracture. Electronically signed by: Alan Conner MD 04/07/2020 3:21 PM CDT Study: CT cervical spine. Indication: trauma Technique: Axial CT images were acquired through the cervical spine without intravenous contrast. Coronal and sagittal reformats performed. This exam was performed according to our departmental dose-optimization program, which includes automated exposure control, adjustment of the mA and/or kV according to patient size and/or use of iterative reconstruction technique. Comparison: None. Findings: Vertebral body height maintained. Straightening cervical spine. No acute fracture or subluxation. Multilevel cervical disc disease noted and most pronounced at the C4-C5 disc space level where there is severe posterior disc space height loss, moderate disc osteophyte complex, moderate spinal canal narrowing, and severe bilateral neural foraminal narrowing. Impression: No acute cervical fracture. Multilevel cervical disc disease as above. Dedicated MRI cervical spine can better evaluate as clinically indicated. Electronically signed by: Alan Conner MD 04/07/2020 3:27 PM CDT Study: CT of the Head. CT of the Face. Indication: trauma Technique: Axial CT images of the head were acquired without intravenous contrast. In addition, axial CT images were acquired of the face without intravenous contrast. Coronal and sagittal reformats performed. This exam was performed according to our departmental dose-optimization program, which includes automated exposure control, adjustment of the mA and/or kV according to patient size and/or use of iterative reconstruction technique. Comparison: None. Findings: No CT evidenc e of acute ischemia, acute hemorrhage, mass, mass effect, midline shift, or extra-axial fluid collection. Ventricles are normal in configuration without hydrocephalus. Patchy hypoattenuation of the periventricular and subcortical white matter noted. This is nonspecific but most consistent with chronic microvascular ischemic change. Global parenchymal volume loss and intracranial atherosclerosis noted as well. Paranasal sinuses are adequately aerated. Mastoid air cells are adequately aerated. Osseous structures and soft tissues are unremarkable. No facial fracture identified. Impression: No CT evidence of acute intracranial abnormality. No acute facial fracture. Electronically signed by: Alan Conner MD 04/07/2020 3:21 PM Given.toT Workstation: [id number] Frontal and lateral views of the right knee. Indication: trauma Comparison: None. Impression: No acute fracture or malalignment. Severe osteoarthritis medial and patellofemoral compartments mild changes lateral compartment. Tiny effusion. Electronically signed by: Alan Conner MD 04/07/2020 3:15 PM Given.toT Workstation: [id number] 3 radiographs right wrist Indication: trauma Comparison: None. Impression: 8 mm negative ulnar variance with moderate distal radioulnar joint osteoarthritis. Moderate osteoarthritis first CMC joint and STT joint. No acute fracture identified. If there is persistent anatomic snuffbox tenderness, repeat wrist imaging to include a scaphoid view is recommended in one week to evaluate for occult scaphoid fracture. Electronically signed by: Alan Conner MD 04/07/2020 3:17 PM Given.toT Workstation: [id number] Single frontal radiograph pelvis Indication: trauma Comparison: None. Impression: Partial visualization of a left total hip arthroplasty. No acute fracture of the pelvis identified. Evaluation for fracture is limited given the degree of osteopenia. If high clinical concern for acute fracture, correlation with MRI recommended given its greater sensitivity in the osteopenic patient. If the patient cannot tolerate MRI imaging or more urgent imaging is required, CT could be performed, however it is less sensitive in the osteopenic patient when compared to MRI. Moderate right hip osteoarthritis. Electronically signed by: Alan Conner MD 04/07/2020 3:16 PM CDT - Results/Orders Results/Orders: EKG-non specific TW changes No STEMI NSR 78bpm motion artifact vs arrhythmia in V6 Procedures - Laceration/Wound Repair Face Wound's Depth, Shape: superficial Wound Explored: no foreign body removed Betadine Prep?: No Anesthesia: 1% Lidocaine Volume Anesthetic (cc's): 10 Wound Debrided: minimal Wound Repaired With: sutures Suture Size/Type: 3:0, prolene Number of Sutures: 3 Layer Closure?: No Sterile Dressing Applied?: Yes Splint Applied?: No Sling Applied?: No Departure - Departure Clinical Impression: Multiple contusions, Abrasions of multiple sites, Hand pain, right, Wrist pain, right Fall Qualifiers: Encounter type: initial encounter Qualified Code(s): W19.XXXA - Unspecified fall, initial encounter Closed head injury Qualifiers: Encounter type: initial encounter Qualified Code(s): S09.90XA - Unspecified injury of head, initial encounter Chin laceration Qualifiers: Encounter type: initial encounter Qualified Code(s): S01.81XA - Laceration without foreign body of other part of head, initial encounter Knee pain, right Qualifiers: Chronicity: unspecified Qualified Code(s): M25.561 - Pain in right knee Time of Disposition: 16:26 Disposition: Discharge to Home or Self Care Condition: Good Departure Forms: ED Discharge - Pt. Copy, Patient Portal Self Enrollment Instructions: DI for Trauma Referrals: Jevon Clay MD [Primary Care Provider] - 1-2 Days Prescriptions: Amoxicillin & Pot Clavulanate [Augmentin Tab] 875 mg PO BID 10 Days #20 tab Acetaminophen [Tylenol] 650 mg PO Q6H PRN #30 tab PRN Reason: Pain Home Medications: Ambulatory Orders Levsin 03/06/15 Pepcid 03/06/15 Hydrocodone-Acetaminophen [[place] 7.5-325 mg] 1 - 2 tab PO Q6H PRN #20 tab 01/29/20 Imipramine HCl 10 PO TID 01/29/20 Acetaminophen [Tylenol] 650 mg PO Q6H PRN #30 tab 04/07/20 Amoxicillin & Pot Clavulanate [Augmentin Tab] 875 mg PO BID 10 Days #20 tab 04/07/20
[2020-04-07] MEDS: ACETAMINOPHEN 325 MG TAB PO ONE (14:29)
[2020-04-07] MEDS: SODIUM CHLORIDE 0.9% 1000ML 1,000 ML IVS ONE (14:29)
[2020-04-07] MEDS ORDERED: LIDOCAINE 1% 10 ML VIAL INJ ONE (14:41)
[2020-04-07] MEDS: TETANUS,DIPHTHERIA,PERTUSSIS 1 EA SYG IM ONE (14:44)
[2020-04-07] MEDS: BACITRACIN 0.9 GM UD PCKT TOP ONE (14:51)
--- NOTE | 2020-04-07 15:16 | RAD ---
Study: Single Frontal Radiograph of the Chest. Indication:trauma Comparison: July 12, 2019 Impression: Heart size normal. Mild basilar atelectasis. No pleural effusion or pneumothorax. Osteopenia. If this is a new finding, DEXA scan recommended as well as evaluation for possible osteoporosis treatment. Electronically signed by: Alan Conner MD 04/07/2020 3:14 PM CDT
--- NOTE | 2020-04-07 15:17 | RAD ---
Frontal, lateral, and oblique views of the right hand. Indication: trauma Comparison: None Impression: No acute fracture. If there is persistent anatomic snuffbox tenderness, repeat wrist imaging to include a scaphoid view is recommended in one week to evaluate for occult scaphoid fracture. Severe erosive osteoarthritis second DIP joint with less pronounced osteoarthritic changes throughout the hand and wrist. 8 mm negative ulnar variance. Electronically signed by: Alan Conner MD 04/07/2020 3:15 PM CDT
--- NOTE | 2020-04-07 15:17 | RAD ---
Frontal and lateral views of the right knee. Indication: trauma Comparison: None. Impression: No acute fracture or malalignment. Severe osteoarthritis medial and patellofemoral compartments mild changes lateral compartment. Tiny effusion. Electronically signed by: Alan Conner MD 04/07/2020 3:15 PM CDT
--- NOTE | 2020-04-07 15:18 | RAD ---
Single frontal radiograph pelvis Indication: trauma Comparison: None. Impression: Partial visualization of a left total hip arthroplasty. No acute fracture of the pelvis identified. Evaluation for fracture is limited given the degree of osteopenia. If high clinical concern for acute fracture, correlation with MRI recommended given its greater sensitivity in the osteopenic patient. If the patient cannot tolerate MRI imaging or more urgent imaging is required, CT could be performed, however it is less sensitive in the osteopenic patient when compared to MRI. Moderate right hip osteoarthritis. Electronically signed by: Alan Conner MD 04/07/2020 3:16 PM CDT
--- NOTE | 2020-04-07 15:19 | RAD ---
3 radiographs right wrist Indication: trauma Comparison: None. Impression: 8 mm negative ulnar variance with moderate distal radioulnar joint osteoarthritis. Moderate osteoarthritis first CMC joint and STT joint. No acute fracture identified. If there is persistent anatomic snuffbox tenderness, repeat wrist imaging to include a scaphoid view is recommended in one week to evaluate for occult scaphoid fracture. Electronically signed by: Alan Conner MD 04/07/2020 3:17 PM CDT
--- NOTE | 2020-04-07 15:20 | RAD ---
2 radiographs left shoulder Indication: Shoulder pain Comparison: April 04, 2020 Impression: Previously noted fracture involving the left humeral neck and greater tuberosity is redemonstrated and appears stable in alignment. The fracture remains ununited. No new fracture or malalignment. Electronically signed by: Alan Conner MD 04/07/2020 3:18 PM CDT
--- NOTE | 2020-04-07 15:23 | CT ---
Study: CT of the Head. CT of the Face. Indication: trauma Technique: Axial CT images of the head were acquired without intravenous contrast. In addition, axial CT images were acquired of the face without intravenous contrast. Coronal and sagittal reformats performed. This exam was performed according to our departmental dose-optimization program, which includes automated exposure control, adjustment of the mA and/or kV according to patient size and/or use of iterative reconstruction technique. Comparison: None. Findings: No CT evidence of acute ischemia, acute hemorrhage, mass, mass effect, midline shift, or extra-axial fluid collection. Ventricles are normal in configuration without hydrocephalus. Patchy hypoattenuation of the periventricular and subcortical white matter noted. This is nonspecific but most consistent with chronic microvascular ischemic change. Global parenchymal volume loss and intracranial atherosclerosis noted as well. Paranasal sinuses are adequately aerated. Mastoid air cells are adequately aerated. Osseous structures and soft tissues are unremarkable. No facial fracture identified. Impression: No CT evidence of acute intracranial abnormality. No acute facial fracture. Electronically signed by: Alan Conner MD 04/07/2020 3:21 PM CDT
--- NOTE | 2020-04-07 15:29 | CT ---
Study: CT cervical spine. Indication: trauma Technique: Axial CT images were acquired through the cervical spine without intravenous contrast. Coronal and sagittal reformats performed. This exam was performed according to our departmental dose-optimization program, which includes automated exposure control, adjustment of the mA and/or kV according to patient size and/or use of iterative reconstruction technique. Comparison: None. Findings: Vertebral body height maintained. Straightening cervical spine. No acute fracture or subluxation. Multilevel cervical disc disease noted and most pronounced at the C4-C5 disc space level where there is severe posterior disc space height loss, moderate disc osteophyte complex, moderate spinal canal narrowing, and severe bilateral neural foraminal narrowing. Impression: No acute cervical fracture. Multilevel cervical disc disease as above. Dedicated MRI cervical spine can better evaluate as clinically indicated. Electronically signed by: Alan Conner MD 04/07/2020 3:27 PM CDT
[2020-04-07 16:08] VITALS: O2SAT 99
[2020-04-07] MEDS: LIDOCAINE 1% 2 ML VIAL INJ ONE (16:11)
[2020-04-07 16:56] VITALS: BP 163/86; TEMP 97.2
== END 2020-04-07 16:56 | disposition home or self-care (01) ==
LOC: ER 13:45
DX: S09.90XA Unspecified injury of head, initial encounter (principal); S01.81XA Laceration without foreign body of other part of head, initial encounter; M79.641 Pain in right hand; M25.531 Pain in right wrist; M25.561 Pain in right knee; E05.90 Thyrotoxicosis, unspecified without thyrotoxic crisis or storm; S00.31XA Abrasion of nose, initial encounter; S60.811A Abrasion of right wrist, initial encounter; T14.8XXA Other injury of unspecified body region, initial encounter; S60.511A Abrasion of right hand, initial encounter; S80.211A Abrasion, right knee, initial encounter; W19.XXXA Unspecified fall, initial encounter; Y92.9 Unspecified place or not applicable
CPT/HCPCS: 36415; 70450; 70486; 71045; 72125; 72170; 73030; 73110; 73130; 73560; 80053; 81001; 84484; 85025; 90471; 90715; 93005; J3490; J7030

== ENCOUNTER → 2020-08-09 | Outpatient (CLI) | payer MEDICARE, OTHER | LOC: GMA MATASK 17:07 | PROVIDERS: ATTEND Family Medicine | DX: R94.6 Abnormal results of thyroid function studies (principal); Z13.29 Encounter for screening for other suspected endocrine disorder ==

== ENCOUNTER → 2020-10-12 | Outpatient (CLI) | payer MEDICARE, OTHER | LOC: GMA MATASK 14:14 | PROVIDERS: ATTEND Family Medicine | DX: R53.82 Chronic fatigue, unspecified (principal); Z13.29 Encounter for screening for other suspected endocrine disorder ==